=== PATIENT | female | born 1965 | race Caucasian/White ===

== ENCOUNTER 2017-09-06 17:48 | Emergency (ER) | payer OTHER, MEDICAID ==
[2012-08-21 10:13] VITALS: BMI 23.6
== END 2017-09-06 19:57 | disposition home or self-care (01) ==
LOC: D.ER 17:48
DX: R07.89 Other chest pain (principal); W19.XXXA Unspecified fall, initial encounter; Y93.89 Activity, other specified; Y92.019 Unspecified place in single-family (private) house as the place of occurrence of the external cause

== ENCOUNTER 2018-01-02 15:22 | Emergency (ER) | payer OTHER, MEDICAID ==
[~2018-01-02] VITALS: Ht 160 cm; Wt 59.1 kg
[2018-01-02 15:42] VITALS: Ht 160 cm; Wt 59.1 kg
[2018-01-02] MEDS ORDERED: PRINIVIL20 MG PO (15:42)
[2018-01-02] MEDS ORDERED: TOPROL XL50 MG PO (15:42)
[2018-01-02] MEDS ORDERED: ULTRAM50 MG PO ×2 (15:43→18:56)
[2018-01-02] MEDS ORDERED: SYNTHROID112 MCG PO (15:43)
[2018-01-02 16:21] LABS: BASOPHILS 0.3 % (0-2); EOSINOPHILS 1.8 % (0-7); HEMATOCRIT 41.3 % (36.0-48.0); HEMOGLOBIN 14.1 g/dL (12-16); IMMATURE GRANULOCYTES 0.2 % (0-5); LYMPHOCYTES 27.1 % (15-50); MCH 33.4 pg (26.0-34.0); MCHC 34.1 g/dL (31.0-37.0); MCV 97.9 fL (80.0-100.0); MEAN PLATELET VOLUME 10.9 fL (7.4-10.4); MONOCYTES 8.8 % (2-11); NEUTROPHILS 61.8 % (40-80); PLATELET COUNT 215 10x3/uL (130-400); RBC 4.22 10x6/uL (4.00-5.40); RDW 13.8 % (11.5-14.5); WBC 6.1 10x3/uL (4.8-10.8)
[2018-01-02 16:44] LABS: ALBUMIN 4.1 g/dL (3.4-5.0); ALKALINE PHOSPHATASE 137 U/L (46-116); ALT (SGPT) 25 U/L (10-68); BILIRUBIN - TOTAL 0.69 mg/dL (0.2-1.3); CALC OSMOLALITY 285 mosm/kg (275-300); CALCIUM 9.2 mg/dL (8.5-10.1); CARBON DIOXIDE 27.6 mmol/L (21.0-32.0); CHLORIDE - SERUM 103 mmol/L (98-107); CREATININE - SERUM 0.8 mg/dL (0.6-1.3); GLUCOSE 126 mg/dL (74-106); POTASSIUM - SERUM 3.9 mmol/L (3.5-5.1); SODIUM 142 mmol/L (136-145); UREA NITROGEN 14 mg/dL (7-18); eGFR NON AFRICAN AMERICAN 79 mL/min (90-120)
[2018-01-02 16:56] LABS: APPEARANCE CLEAR (CLEAR); BILIRUBIN NEGATIVE (NEGATIVE); COLOR YELLOW (YELLOW); GLUCOSE NEGATIVE (NEGATIVE); KETONE NEGATIVE (NEGATIVE); NITRITE NEGATIVE (NEGATIVE); PROTEIN NEGATIVE (NEGATIVE); UROBILINOGEN NORMAL (NORMAL)
[2018-01-02 16:57] LABS: BACTERIA FEW /hpf (NONE SEEN); EPITHELIAL CELLS 0-5 /hpf (0-5); RED CELLS - URINE 0-5 /hpf (0-5); WHITE CELLS - URINE 0-5 /hpf (0-5)
[2018-01-02] MEDS ORDERED: MACROBID100 MG PO (18:56)
[2018-01-02 19:34] VITALS: BP 149/89
== END 2018-01-02 19:34 | disposition home or self-care (01) ==
LOC: D.ER 15:22
PROVIDERS: Family Medicine
DX: R10.9 Unspecified abdominal pain (principal); Z87.442 Personal history of urinary calculi; N39.0 Urinary tract infection, site not specified

== ENCOUNTER 2018-04-10 17:49 | Emergency (ER) | payer OTHER ==
[~2018-04-10] VITALS: Ht 160 cm; Wt 63.6 kg
[~2018-04-10 17:49] MED LIST: MACROBID100 MG PO; PRINIVIL20 MG PO; SYNTHROID112 MCG PO; TOPROL XL50 MG PO; ULTRAM50 MG PO
[2018-04-10 17:52] VITALS: Ht 160 cm; Wt 63.6 kg
[2018-04-10] MEDS ORDERED: TYLENOL W/CODEI1 TAB PO (20:02)
[2018-04-10] MEDS ORDERED: ROBAXIN500 MG PO (20:02)
[2018-04-10 20:56] VITALS: BP 138/92
== END 2018-04-10 20:56 | disposition home or self-care (01) ==
LOC: D.ER 17:49
DX: M25.512 Pain in left shoulder (principal); W18.30XA Fall on same level, unspecified, initial encounter; Y93.89 Activity, other specified; Y92.019 Unspecified place in single-family (private) house as the place of occurrence of the external cause

== ENCOUNTER 2019-07-28 11:11 | Emergency (ER) | payer OTHER ==
[~2019-07-28] VITALS: Ht 160 cm; Wt 72.6 kg
[~2019-07-28 11:11] MED LIST changes: +ROBAXIN500 MG PO; +TYLENOL W/CODEI1 TAB PO
[2019-07-28 11:17] VITALS: Ht 160 cm; Wt 72.6 kg
[2019-07-28 11:57] LABS: BILIRUBIN NEGATIVE (NEGATIVE); GLUCOSE NEGATIVE (NEGATIVE); KETONE NEGATIVE (NEGATIVE); NITRITE NEGATIVE (NEGATIVE); SPECIFIC GRAVITY 1.015 (1.005-1.020); UROBILINOGEN NORMAL (NORMAL)
[2019-07-28 12:03] LABS: BACTERIA FEW /hpf (NEGATIVE); EPITHELIAL CELLS 0-5 /hpf (0-5); RED CELLS - URINE 0-5 /hpf (0-5)
[2019-07-28 12:18] LABS: BASOPHILS 0.4 % (0-2); EOSINOPHILS 1.6 % (0-7); HEMATOCRIT 37.7 % (36.0-48.0); HEMOGLOBIN 12.3 g/dL (12-16); IMMATURE GRANULOCYTES 0.2 % (0-5); LYMPHOCYTES 33.6 % (15-50); MCH 32.4 pg (26.0-34.0); MCHC 32.6 g/dL (31.0-37.0); MCV 99.2 fL (80.0-100.0); MEAN PLATELET VOLUME 10.6 fL (7.4-10.4); MONOCYTES 11.6 % (2-11); NEUTROPHILS 52.6 % (40-80); PLATELET COUNT 218 10x3/uL (130-400); RDW 13.8 % (11.5-14.5); WBC 5.6 10x3/uL (4.8-10.8)
[2019-07-28 12:32] LABS: CALC OSMOLALITY 276 mosm/kg (275-300); CALCIUM 8.5 mg/dL (8.5-10.1); CARBON DIOXIDE 26.1 mmol/L (21.0-32.0); CHLORIDE - SERUM 103 mmol/L (98-107); CREATININE - SERUM 0.6 mg/dL (0.6-1.3); GLUCOSE 97 mg/dL (74-106); POTASSIUM - SERUM 3.9 mmol/L (3.5-5.1); SODIUM 139 mmol/L (136-145); UREA NITROGEN 10 mg/dL (7-18); eGFR NON AFRICAN AMERICAN > 90 mL/min (90-120)
[2019-07-28 12:37] LABS: ALBUMIN 3.9 g/dL (3.4-5.0); ALKALINE PHOSPHATASE 150 U/L (30-120); ALT (SGPT) 38 U/L (10-68); PROTEIN - SERUM 7.8 g/dL (6.4-8.2)
[2019-07-28] MEDS ORDERED: BENTYL 20 MG TA20 MG PO (14:05)
[2019-07-28] MEDS ORDERED: ZOFRAN ODT4 MG/UDTAB PO (14:05)
[2019-07-28] MEDS ORDERED: MACROBID100 MG PO (14:05)
[2019-07-28 14:30] VITALS: BP 132/78
== END 2019-07-28 14:31 | disposition home or self-care (01) ==
LOC: D.ER 11:11
PROVIDERS: Emergency Medicine
DX: N39.0 Urinary tract infection, site not specified (principal); R10.9 Unspecified abdominal pain